=== PATIENT | male | born 1945 | race Caucasian/White ===

== ENCOUNTER 2016-08-24 09:27 | Emergency (ER) | payer MEDICARE ==
--- NOTE | 2016-08-29 15:21 | ER ---
ADMIT: 08/24/2016 RM/LOC: ER [facility] MR#: [id number] [address] [id number] [place] [address] Emergency Room Report SEX: M AGE: 70 : 1945 DATE: 08/24/2016 HISTORY OF PRESENT ILLNESS: This is a 70-year-old resident of [facility]. He had a seizure while at the correction. He does not recall the specifics of the seizure, but he does have a history of seizure disorder. This was a single episode and it was not witnessed. However, he was found postictal and the ambulance was called to bring him to the ER to get evaluated. He also sustained a left forehead hematoma with an abrasion. PAST MEDICAL HISTORY: Epilepsy, TBI. MEDICATIONS: See T-sheet. PHYSICAL EXAMINATION: GENERAL: Very pleasant, alert gentleman with very few words to say most likely due to his TBI. VITAL SIGNS: His blood pressure 156/74, heart rate 87, respirations 17, temp 97.4, O2 sats 97%. HEENT: Within normal limits. Normal eye inspection. Pupils are equal and reactive. SKIN: Abrasion; left forehead with a hematoma of about 4 x 7. Pedal edema; right leg 2+, but this a chronicity. NEURO: Slow, confused. He is oriented to person and place, but not time and situation. He is as mentioned still postictal. Labs were done to rule out the reason for the seizure as he says he has not had seizures for a while. The CT of the head shows a hematoma in left forehead, but mild chronic small vessel ischemic changes, nothing acute. He has had a CBC normal with platelets of 140 stays and slightly down. TSH is 2.39. Glucose 174. ProBNP 180. Albumin 3.3. Valproic acid is therapeutic at 59.6. He was unable to give us the sample of urine. Apparently, he was incontinent for it and we were unable to capture the sample. CLINICAL IMPRESSION: Seizure, status epilepticus with a history of epilepsy, postictal forehead hematoma. Negative CT scan. The patient is to be discharged to his correction. I have managed to get him an appointment on Saturday at 1:[address] Sanchez's office to get re-evaluated again. Return to the ER if symptoms change and worsens. Ice to the affected area. Continue home medications. ANDREW Gonzales / Portillo Clements MD / modl JOB #: [id number] CC: Portillo Clements MD, Attending Physician Festus Mix MD, Family Physician
== END 2016-08-24 13:30 | disposition home or self-care (01) ==
LOC: ER 09:27
DX: S00.83XA Contusion of other part of head, initial encounter (principal); G40.901 Epilepsy, unspecified, not intractable, with status epilepticus; Z79.899 Other long term (current) drug therapy; X58.XXXA Exposure to other specified factors, initial encounter